=== PATIENT | female | born 1965 | race Caucasian/White ===

== ENCOUNTER 2016-07-12 10:43 | Emergency (ER) | payer MEDICARE, OTHER ==
[2016-07-12] MEDS ORDERED: ASPIRIN 81 MG TABLET, CHEWABLE PO ONE (10:53)
--- NOTE | 2016-07-12 10:54 | ER Document Report ---
ED Medical Screen (RME) - General Chief Complaint: Shortness Of Breath Stated Complaint: DIFFICULTY BREATHING Time seen by provider: 10:52 Mode of Arrival: Ambulatory Information source: Patient Notes: 51-year-old bilateral nephrectomy due to polycystic kidney disease hemodialysis (M-W-F) patient since February 2016 is complaining of increased shortness of breath especially when she lays flat. She is due for dialysis at 1:30pm on [address]. She tried an albuterol nebulizer last night in the middle the night while sitting up. History of CHF February 2016. She states she's is overweight with fluid more than she should be and her physician was aware of that. She does not take Lasix. She is retrosternal midline chest pain when she coughs. The cough is nonproductive. TRAVEL OUTSIDE OF THE [place] IN LAST 30 DAYS: No COUNTRY TRAVELED TO/FROM: [facility] Past Medical History Renal/ Medical History: Denies: Hx Peritoneal Dialysis Physical Exam - Vital signs Vitals: Temp Pulse Resp BP Pulse Ox 98.2 F 92 18 188/89 H 99 07/12/16 10:46 07/12/16 10:46 07/12/16 10:46 07/12/16 10:46 07/12/16 10:46 Course - Vital Signs Vital signs: Temp Pulse Resp BP Pulse Ox 98.2 F 92 18 188/89 H 99 07/12/16 10:46 07/12/16 10:46 07/12/16 10:46 07/12/16 10:46 07/12/16 10:46
[2016-07-12] MEDS ORDERED: IPRATROPIUM/ALBUTEROL 0.5-2.5 MG/3 ML AMPUL NEB ONE (10:55)
--- NOTE | 2016-07-12 12:24 | ER Document Report ---
ED General - General Chief Complaint: Shortness Of Breath Stated Complaint: DIFFICULTY BREATHING Time seen by provider: 12:00 Mode of Arrival: Ambulatory Information source: Patient Notes: 51-year-old female woke up with shortness of breath about 2:00 this morning and use nebulizer treatments with some improvement. The patient reports a history of mild COPD but says she doesn't usually get very short of breath with that. She does report a history of several episodes congestive heart failure health resulted in respiratory arrest but she says her symptoms last night did not feel quite that bad. The patient is status post bilateral nephrectomy for polycystic kidney disease and is dialysis Sunday. She lives in [place] and drove here 6 hours yesterday. He arranged to do dialysis while in the area facility and [address] beginning 1:30 this afternoon. Patient thinks she is a few pounds over her usual weight and does think she's had some lower extremity swelling worsen her baseline for the past 3 days but her analysis doctors in [place] did not wish to dialyze any extra. She reports some sharp retrosternal anterior chest pain with coughing but not otherwise says she's had mild nonproductive cough for the past week. She denies any pain numbness weakness to extremities, nausea, vomiting, diarrhea, hematemesis, mattress, or melena. He reports he's been chronically having intermittent episodes of left mid abdominal pain for which she has seen physicians but doesn' t know if she has a diagnosis yet. She reports that the pain is not particularly bothersome now compared to her baseline. Patient left forearm fistula is not yet mature and currently is dialyzing through her right chest catheter. She denies fever, chills, syncope, earache, sore throat. Physical Exam: General: Alert, appears well. HEENT: Normocephalic. Atraumatic. PERRLA. Extraocular movements intact. Oropharynx clear. Neck: Supple. Non-tender. No JVD no adenopathy no nuchal rigidity Respiratory: No respiratory distress. Clear and equal breath sounds bilaterally. Cardiovascular: Regular rate and rhythm. PMI not displaced. right chest catheter site appears healthy Abdominal: Normal Inspection. Soft, trace left mid abdominal tenderness no guarding rebound rigidity well-healed midline incision Back: Non-tender. No deformity or step off. Extremities: Warm to plus pulses of cyanosis trace pedal edema bilaterally no Homans sign bilaterally left forearm dialysis access site appears healthy Neurological: Speech clear mentation normal flagsetter strength 5 out of 5 equal both upper tremors motor function 5 out of 5 equal both lower extremities Psychological: Normal affect. Normal Mood. Skin: Warm. Dry. Normal color. TRAVEL OUTSIDE OF THE [place] IN LAST 30 DAYS: No COUNTRY TRAVELED TO/FROM: [facility] - Related Data Allergies/Adverse Reactions: doxycycline Allergy (Verified 07/12/16 10:56) levofloxacin [From Levaquin] Allergy (Verified 07/12/16 10:56) tiotropium [From Spiriva with HandiHaler] Allergy (Verified 07/12/16 10:56) Past Medical History - General Information source: Patient - Social History Smoking Status: Former Smoker Family History: Reviewed & Not Pertinent Patient has suicidal ideation: No Patient has homicidal ideation: No Renal/ Medical History: Reports: Hx End Stage Renal Disease, Hx Hemodialysis, Other - Polycystic kidney disease. Denies: Hx Peritoneal Dialysis Past Surgical History: Reports: Other - Bilateral nephrectomy Review of Systems - Review of Systems Constitutional: See HPI EENT: denies: Ear pain, Throat pain Cardiovascular: See HPI Respiratory: See HPI Gastrointestinal: See HPI Genitourinary: Other - And uric secondary to bilateral nephrectomy Female Genitourinary: Post menopausal Musculoskeletal: Leg swelling. denies: Back pain Skin: denies: Rash Hematologic/Lymphatic: denies: Swollen glands Neurological/Psychological: denies: Weakness, Numbness Physical Exam - Vital signs Vitals: Temp Pulse Resp BP Pulse Ox 98.2 F 92 18 188/89 H 99 07/12/16 10:46 07/12/16 10:46 07/12/16 10:46 07/12/16 10:46 07/12/16 10:46 Course - Re-evaluation Re-evalutation: 07/12/16 13:31 Chest x-ray is concerning for multifocal pneumonia but this was not confirmed on CT scan. Patient has no pulmonary embolism or pneumonia. I do believe she has some mild bronchitis responsible for shortness of breath and she will be discharged on antibiotics and short course of steroids for that in addition to inhaler she has at home. We'll discharge her now so that she can keep her outpatient dialysis appointment. I do not have her chemistry panel back at this point but I think it unlikely that there will be anything there that would change the plans for outpatient management and outpatient dialysis and if we wait for though she may miss her dialysis appointment and as this facility does not do on schedule dialysis with [place] up having to transfer the patient to a tertiary care facility to have emergent dialysis done now and I would prefer to simply get her to her outpatient appointment now - Vital Signs Vital signs: Temp Pulse Resp BP Pulse Ox 98.2 F 92 18 188/89 H 99 07/12/16 10:46 07/12/16 10:46 07/12/16 10:46 07/12/16 10:46 07/12/16 10:46 - Laboratory Result Diagrams: 07/12/16 12:47 07/12/16 12:47 Laboratory results interpreted by me: 07/12/16 12:47 RBC 3.69 L Hgb 11.7 L Hct 34.7 L RDW 17.7 H - Diagnostic Test Radiology reviewed: Image reviewed, Reports reviewed - EKG Interpretation by Me Additional EKG results interpreted by me: 07/12/16 12:25 EKG reviewed by myself shows sinus rhythm at 97 with no acute changes Discharge - Discharge Clinical Impression: Bronchitis, End stage renal disease Condition: Stable Disposition: HOME, SELF-CARE Additional Instructions: Bronchitis You have acute bronchitis. This disease is an infection or inflammation of the air passageways in your lungs. Symptoms usually include cough, low grade fever, shortness of breath, and wheezing. The cough usually persists for a couple of weeks. Most cases of bronchitis get better without antibiotics. We prescribe antibiotics when we believe bacteria are damaging your airways, or if there's high risk the bronchitis will worsen into pneumonia. Increase your fluid intake. A cool mist humidifier may make your lungs more comfortable. An expectorant (cough medicine that loosens phlegm) can help. If you smoke, STOP!!! Recovery from bronchitis can be somewhat slow, but you should see improvement within a day or two. Repeated episodes of bronchitis may result in lung damage -- for example, chronic bronchitis, recurrent pneumonias, or emphysema. Call the doctor if you develop increasing fever, shortness of breath, chest pain, bloody sputum, or otherwise worsen. If you have not improved at all after several days, contact the physician. Go to your dialysis appointment now Prescriptions: Azithromycin [Zithromax 250 mg Tablet] 250 mg PO ASDIR PRN #6 tablet PRN Reason: Methylprednisolone [Medrol Dosepack (4 mg/Tab) 21 Tab/Dosepak] 4 mg PO ASDIR PRN #21 tab.ds.pk PRN Reason:
[2016-07-12 13:01] LABS: ABSOLUTE BASOPHILS # (AUTO) 0.1 10^3/uL (0.0-0.2); ABSOLUTE EOSINOPHILS # (AUTO) 0.1 10^3/uL (0.0-0.6); ABSOLUTE LYMPHOCYTES (AUTO) 1.1 10^3/uL (0.5-4.7); ABSOLUTE MONOCYTES (AUTO) 0.5 10^3/uL (0.1-1.4); ABSOLUTE NEUT (AUTO) 4.7 10^3/uL (1.7-8.2); BASOPHILS % (AUTO) 0.9 % (0-2); EOSINOPHILS % (AUTO) 1.6 % (0-6); HEMATOCRIT 34.7 % (36.0-47.0); HEMOGLOBIN 11.7 g/dL (12.0-15.5); HGB HCT DIFFERENCE 0.4; LYMPHOCYTES % (AUTO) 17.7 % (13-45); MEAN CORPUSCULAR HEMOGLOBIN 31.8 pg (27.0-33.4); MEAN CORPUSCULAR HGB CONC 33.9 g/dL (32.0-36.0); MEAN CORPUSCULAR VOLUME 94 fl (80-97); MONOCYTES % (AUTO) 7.1 % (3-13); RED BLOOD COUNT 3.69 10^6/uL (3.72-5.28); RED CELL DISTRIBUTION WIDTH 17.7 % (11.5-14.0); SEGMENTED NEUTROPHILS % (AUTO) 72.7 % (42-78); WHITE BLOOD COUNT 6.4 10^3/uL (4.0-10.5)
[2016-07-12 13:22] LABS: ALANINE AMINOTRANSFERASE 21 U/L (9-52); ALBUMIN 4.7 g/dL (3.5-5.0); ALKALINE PHOSPHATASE 122 U/L (38-126); ANION GAP 18 (5-19); ASPARTATE AMINO TRANSFERASE 31 U/L (14-36); BILIRUBIN,DIRECT 0.5 mg/dL (0.0-0.4); BILIRUBIN,TOTAL 1.3 mg/dL (0.2-1.3); BLOOD UREA NITROGEN 59 mg/dL (7-20); CALCIUM 9.9 mg/dL (8.4-10.2); CARBON DIOXIDE 32 mmol/L (22-30); CHLORIDE 93 mmol/L (98-107); CREATINE KINASE 80 U/L (30-135); CREATININE RESULT 7.77 mg/dL (0.52-1.25); GLUCOSE 96 mg/dL (75-110); TOTAL PROTEIN 7.5 g/dL (6.3-8.2)
[2016-07-12 13:34] LABS: CREATINE KINASE MB 1.32 ng/mL (<4.55); TROPONIN I 0.029 ng/mL
[2016-07-12 13:38] LABS: POTASSIUM 6.1 mmol/L (3.6-5.0)
--- NOTE | 2016-07-12 13:58 | EKG REPORT ---
SEVERITY:- NORMAL ECG - SINUS RHYTHM : Confirmed by: Everton Estevez MD 12-Jul-2016 13:57:22
[2016-07-12 14:33] VITALS: BP 184/91
== END 2016-07-12 13:45 | disposition home or self-care (01) ==
LOC: ER 10:43
DX: J40 Bronchitis, not specified as acute or chronic (principal); N18.6 End stage renal disease; R06.02 Shortness of breath; R06.00 Dyspnea, unspecified; J44.9 Chronic obstructive pulmonary disease, unspecified; I50.9 Heart failure, unspecified; Z87.891 Personal history of nicotine dependence; Z99.2 Dependence on renal dialysis; Z90.5 Acquired absence of kidney
CPT/HCPCS: 93005; 94640; 99285; 36415; 82553; 82550; 83690; 85025; 80053; 84484; 83880; 71010; 71275; 93010; A9270 ×2; J7620